=== PATIENT | female | born 1950 | race Caucasian/White ===

== ENCOUNTER 2019-01-21 15:54 | Emergency (ER) | payer OTHER ==
[~2019-01-21] VITALS: Ht 160 cm; Wt 72.4 kg
[~2019-01-21 15:54] MED LIST: CLOP75TA27 PO; LISI2.5T59 PO; METO-335 PO; ONDA4TAB8 PO; RANI150T35 PO
[2019-01-21 16:01] VITALS: Ht 160 cm; Wt 72.4 kg
[2019-01-21] MEDS ORDERED: KETOROLAC 60 MG INJ IM STA (17:54)
[2019-01-21] MEDS ORDERED: CYCLOBENZAPRINE 10 MG TAB PO ONE (18:00)
[2019-01-21] MEDS ORDERED: TRAM50TA2 PO (18:33)
[2019-01-21] MEDS ORDERED: CYCL10TA7 PO (18:33)
--- NOTE | 2019-01-21 18:34 | ERD ---
ER Documentation Chief Complaint Chief Complaint left lower back pain x 2 days HPI 68-year-old female presenting with left lower back pain for the past 2 days. She describes it as spasming of her lower back, worse with movement but also happens at rest. The pain is intermittent, cramping, radiating to her left low er quadrant at times and her left buttocks. Sometimes it radiates all the way down her left leg. She denies any focal weakness or numbness. No urinary or bowel incontinence or retention. Denies any hematuria or dysuria. She does not recall any injury recently. A few days ago she did have a deep massage. She tried to take ibuprofen last night but it did not sit well with her and she had a vomiting episode. ROS All systems reviewed and are negative except as per history of present illness. Medications Home Meds Active Scripts Cyclobenzaprine Hcl* (Cyclobenzaprine Hcl*) 10 Mg Tablet, 10 MG PO TID PRN for MUSCLE SPASMS, #15 TAB Prov:LETTY SEVILLA MD 01/21/19 Tramadol HCl (Tramadol HCl) 50 Mg Tablet, 50 MG PO Q6 PRN for PAIN, #20 TAB Prov:LETTY SEVILLA MD 01/21/19 Discontinued Scripts Ondansetron Hcl* (Zofran*) 4 Mg Tablet, 4 MG PO Q8H PRN for NAUSEA AND/OR VOMITING, #10 TAB Prov:VILMA GIBBONS 11/18/15 Ranitidine Hcl* (Zantac*) 150 Mg Tablet, 150 MG PO BID PRN for GASTROINTESTINAL UPSET, #30 TAB Prov:VILMA GIBBONS 11/18/15 Lisinopril* (Lisinopril*) 2.5 Mg Tablet, 2.5 MG PO DAILY, #30 TAB 3 Refills Prov:ELDA HERNANDEZ MD 03/21/15 Metoprolol Succinate* (Toprol XL*) 25 Mg Tab.sr.24h, 25 MG PO DAILY, #30 TAB 3 Refills Prov:ELDA HERNANDEZ MD 03/21/15 Clopidogrel Bisulfate (Clopidogrel) 75 Mg Tab, 75 MG PO DAILY, #30 3 Refills Prov:ELDA HERNANDEZ MD 03/21/15 Allergies Allergies: Coded Allergies: shrimp (Verified Allergy, Unknown, 01/21/19) PMhx/Soc History of Surgery: Yes (CHOLY, APPENDECTOMY, CATARACT SX) Anesthesia Reaction: No Hx Neurological Disorder: No Hx Respiratory Disorders: No Hx Cardiac Disorders: Yes (mi; stent placement) Hx Psychiatric Problems: No Hx Miscellaneous Medical Probl: No Hx Alcohol Use: No Hx Substance Use: No Hx Tobacco Use: No Smoking Status: Never smoker FmHx Family History: No diabetes Physical Exam Vitals Vital Signs Date Temp Pulse Resp B/P (MAP) Pulse Ox O2 O2 Flow FiO2 Time Delivery Rate 01/21/19 99.0 96 18 162/86 98 16:01 (111) Physical Exam Const: No acute distress Head: Atraumatic Eyes: Normal Conjunctiva ENT: Normal External Ears, Nose and Mouth. Neck: Full range of motion. No meningismus. Resp: Clear to auscultation bilaterally Cardio: Regular rate and rhythm, no murmurs. 2+ radial, DP and PT pulses Abd: Soft, non tender, non distended. Normal bowel sounds Skin: No petechiae or rashes Back: No midline or flank tenderness. Left paraspinal thoracic and lumbar muscle tenderness to palpation. Positive straight leg raise on the left Ext: No cyanosis, or edema Neur: Awake and alert, oriented x3, no facial asymmetry. Strength and sensations intact in bilateral upper and lower extremities in all distributions. Psych: Normal Mood and Affect Results 24 hrs Laboratory Tests Test 01/21/19 18:35 Bedside Urine pH (LAB) 6.0 Bedside Urine Protein (LAB) Negative Bedside Urine Glucose (UA) Negative Bedside Urine Ketones (LAB) Negative Bedside Urine Blood 1+ Bedside Urine Nitrite (LAB) Negative Bedside Urine Leukocyte Esterase (L Trace Current Medications Medications Dose Sig/Fouzia Start Time Status Last (Trade) Ordered Route PRN Stop Time Admin Dose Reason Admin Ketorolac 60 mg ONCE STAT 01/21/19 DC 01/21/19 Tromethamine IM 17:54 18:01 (Toradol) 01/21/19 17:55 10 mg ONCE ONCE 01/21/19 DC 01/21/19 Cyclobenzapri PO 18:00 18:01 ne HCl 01/21/19 18:01 (Flexeril) Procedures/MDM Urine dip shows 1+ blood with trace leukocytes, doubt infection Patient is presenting with left lower back cramping and spasming with possible sciatica. the patient is neurovascularly intact on exam with unremarkable vitals. I have a low suspicion for spinal tumor as the patient has no history of cancer, night sweats, or weight loss. I have a low suspicion for bone or disc infection, cauda equina, cord compression, acute spinal fracture, infiltrative, or infectious etiology. She was treated with Flexeril and Toradol. Patient's musculoskeletal symptoms have stabilized while they have been evaluated in the department and are appropriate for outpatient work up. I advised follow up with their PCP in 1-2 days. Return precautions were discussed in detail. I recommended rest and analgesics. Departure Diagnosis: Primary Impression: Acute low back pain with left-sided sciatica Back pain laterality: left Qualified Codes: M54.42 - Lumbago with sciatica, left side Condition: Stable Patient Instructions: Back Pain W/ Sciatica Additional Instructions: Return to the ER for any worsening symptoms. Do not drive or operate heavy machinery while taking the medications you were prescribed. If any follow-up with your primary care doctor tomorrow as discussed. LETTY SEVILLA MD Jan 21, 2019 18:34
[2019-01-21 18:45] VITALS: BP 156/80; PULSE 78; RESP 16
== END 2019-01-21 18:45 | disposition home or self-care (01) ==
LOC: E/R 15:54
DX: M54.42 Lumbago with sciatica, left side (principal); I25.2 Old myocardial infarction; Z98.61 Coronary angioplasty status
CPT/HCPCS: 81003; 96372; 99284; J1885